=== PATIENT | male | born 1950 | race Caucasian/White ===

== ENCOUNTER 2017-09-05 10:39 | Outpatient (CLI) | payer MEDICARE ==
[2017-09-05 11:16] LABS: Calc. Creatinine Clearance 0 mL/min (70-130); Estimated GFR-MDRD Greater than 90
[2017-09-05] MEDS ORDERED: Iopamidol 370 76% 50 ML VIAL FS ONE (12:22)
--- NOTE | 2017-09-05 12:27 | CT ---
CT BRAIN PERFORMED WITH AND WITHOUT CONTRAST ENHANCEMENT: History: Lung cancer with brain metastases. Comparison: CT examination of 02-21-17. FINDINGS: Ventricular and cisternal system shows fairly age appropriate change. The subtle enhancing areas seen in the supra and infratentorial region are not definitely appreciated on this examination. Mastoid air cells and visualized sinuses re clear. IMPRESSION: Interval resolution of the subtle enhancing masses seen in the supra and infratentorial regions. POS: ENA
== END 2017-09-05 10:40 | disposition home or self-care (01) ==
LOC: CT 10:39
PROVIDERS: ATTEND Internal Medicine Hematology & Oncology
DX: C34.02 Malignant neoplasm of left main bronchus (principal); C71.9 Malignant neoplasm of brain, unspecified
CPT/HCPCS: 36415; 70470; 82565

== ENCOUNTER 2017-09-26 09:38 | Outpatient (CLI) | payer MEDICARE ==
--- NOTE | 2017-09-26 15:31 | PET ---
NUCLEAR MEDICINE FDG PET CT: (Positron Emission Tomography) DATE: 09/26/17 HISTORY: 67-year-old male with metastatic lung cancer. COMPARISON: 02/26/17. TECHNIQUE: IV injection F-18 Fluorodeoxyglucose (FDG) dose: 9.2 mCi PET and attenuation-correction CT performed from skull base to proximal thighs. FINDINGS: SUV (standard uptake value) numbers given are maximum SUV's: The previously demonstrated very hypermetabolic right supraclavicular Level IV lymph node with SUV of 11.4, has resolved. Inferior to that, a right internal mammary hypermetabolic lymph node demonstrated previously has also resolved. The previously demonstrated large right anterior paratracheal upper mediastinal lymph node is similar in size currently compared to the previous study, approximately 4 x 3 cm. It is now less hypermetabo lic (previously 14.7 SUV, currently 8.8 SUV). The previously demonstrated much smaller hypermetabolic lesion with previous SUV of 12.3 located betw een the left posterior aspect of the trachea and one of the upper-mid thoracic vertebral bodies, at t he level of the posterior aortic arch, has resolved. There was a malignant hypermetabolic lymph node in the left side of the junction between the mediasti num and neck with SUV of 10.4, which has resolved. However, at the same level but anterior to it, there is a lymph node at the cervicothoracic junction abutting the left side of the left lobe of the thyroid gland and left common carotid artery, new, wit h current SUV of 12.5. It measures approximately 3.0 x 1.5 cm. There is a new approximately 1.5 x 1.5 cm left internal mammary lymph node with SUV of 9.5. The previously demonstrated conglomeration of hypermetabolic middle mediastinal lymph nodes anterior to the adithya and extending into the aortopulmonic window, with previous SUVs of 13.6 and 14.0, has b ecome significantly less hypermetabolic, with current SUVs of 11.1 at the AP window and 7.5 at the pr ecarinal region. The left posterior inferior hilar hypermetabolic mass with previous SUV Of 12.4 now has SUV of 9.2. The conglomeration of subcarinal lymph nodes with previous SUV of 12.1 now has SUV of 10.3. There is a greater left lateral extension of this now than before, abutting the left inferior hilum a nd abutting the anterior aspect of the descending thoracic aorta, with SUV of 9.7. Previously, there was a nodule located in the anterior portion of the superior segment of left lower lobe, abutting the major fissure, measuring roughly 1.5 cm, which has disappeared. There are currently no suspicious hypermetabolic pulmonary nodules. Previously, there were multiple small hypermetabolic hepatic metastases. Currently, these have become much larger, much more hypermetabolic, and many of them have become confluent with each other. One o f the larger of these is in the right lobe, measuring approximately 7 x 5 cm, with SUV of 13.4. Anoth er moderately large liver lesion more inferiorly in the right lobe hepatic segment V has SUV of 12.2. A lesion in left lobe hepatic segment IVb has SUV of 16.3. There is a new finding of malignant henry hepatis lymph nodes, with SUV of 10.9. The intraosseous lesion at the center of the L5 vertebral body with previous SUV of 12.2 is now below the hypermetabolic threshold, currently 2.9. The osseous lesion at the right anterior aspect of the iliac wing with previous SUV of 10.7 is no dangelo rajeev hypermetabolic, currently 1.0. The left sacral ala metastatic lesion with previous SUV of 12.3 has currently resolved. The metastatic lesion in the left ilium just lateral to the left SI joint had previous SUV of 11.0, b ut has current SUV of 9.9, slightly diminished. Smaller lesions in the right lower sacral ala and midline sacrococcygeal junction have also resolved. There is a new osseous lesion located posterior and inferior to the right acetabulum with SUV of 4.1. The lesion at the left intertrochanteric region of the left proximal femur had previous SUV of 5.5, b ut this has increased to 6.1 now. The previous tiny hypermetabolic lesion at the right anterior intertrochanteric femoral cortex with S UV of 4.4, has now resolved. Likewise, many more hypermetabolic lesions throughout the thoracic spine and lumbar spine have become mostly less hypermetabolic than previously. IMPRESSION: 1. Mixed response to therapy. 2. The hepatic metastases have become much worse. 3. There are now new henry hepatis malignant lymph nodes. 4. While many of the mediastinal hypermetabolic lymph nodes have improved, new ones have appeared. 5. Most of the skeletal metastases have improved, while a few new ones have appeared. 6. The left lower lobe pulmonary metastatic nodule has resolved. There are currently no metastatic p ulmonary nodules. 7. Supraclavicular and internal mammary chain lymph nodes also have mixed responses. AMANDA Pabon POS: ENA
== END 2017-09-26 09:39 | disposition home or self-care (01) ==
LOC: PET 09:38
PROVIDERS: ATTEND Internal Medicine Hematology & Oncology
DX: C34.02 Malignant neoplasm of left main bronchus (principal)
CPT/HCPCS: 78815; A9552